=== PATIENT | female | born 1995 | race Caucasian/White ===

== ENCOUNTER 2019-01-18 18:42 | Emergency (ER) | payer OTHER ==
[2019-01-18] MEDS ORDERED: predniSONE 20 MG TABLET PO STA (19:44)
[2019-01-18] MEDS ORDERED: diphenhydrAMINE 25 MG CAPSULE PO STA (19:44)
--- NOTE | 2019-01-18 19:47 | ED Physician Documentation ---
PD HPI SKIN - Stated complaint Stated Complaint: RASH ON BODY - Chief complaint Chief Complaint: Wound - History obtained from History obtained from: Patient - History of Present Illness Timing - onset: Today (She developed an itchy rash all over but especially on the elbows and knees and face today. No clear inciting cause. No respiratory difficulty.) Review of Systems Constitutional: denies: Fever, Chills Cardiac: denies: Chest pain / pressure, Palpitations Respiratory: denies: Dyspnea, Cough GI: denies: Abdominal Pain PD PAST MEDICAL HISTORY - Past Medical History Past Medical History: No - Past Surgical History Past Surgical History: No - Present Medications Home Medications: Ambulatory Orders Medication Instructions Recorded Confirmed predniSONE [Deltasone] 60 mg PO DAILY 5 Days tablet 01/18/19 - Allergies Allergies/Adverse Reactions: Allergies Allergy/AdvReac Type Severity Reaction Status Date / Time No Known Drug Allergies Allergy Verified 01/18/19 18:49 - Social History Does the pt smoke?: No Smoking Status: Never smoker Does the pt drink ETOH?: Yes Does the pt have substance abuse?: No - Immunizations Immunizations are current?: Yes PD ED PE NORMAL - Vitals Vital signs reviewed: Yes - General General: Alert and oriented X 3, No acute distress - HEENT HEENT: PERRL, EOMI, Ears normal, Pharynx benign - Respiratory Respiratory: No respiratory distress - Abdomen Abdomen: Non tender - Derm Derm: Other (She has mild urticaria on the neck, face, elbows and knees.) - Neuro Neuro: Alert and oriented X 3, Normal speech Results - Vitals Vitals: Vital Signs - 24 hr 01/18/19 18:48 Temperature 37.0 C Heart Rate 112 H Respiratory 18 Rate Blood Pressure 149/89 H O2 Saturation 98 Oxygen O2 Source Room air Departure - Departure Disposition: Home, Self Care Clinical Impression: Urticaria Condition: Good Record reviewed to determine appropriate education?: Yes Instructions: Urticaria Prescriptions: predniSONE [Deltasone] 60 mg PO DAILY 5 Days tablet Comments: Benadryl as needed per package instructions for the itching. Do not drink or drive while taking the Benadryl. Once the steroids kick in you should need the Benadryl anymore. Forms: Activity restrictions
[2019-01-18 19:52] VITALS: BP 130/84
== END 2019-01-18 19:52 | disposition home or self-care (01) ==
LOC: ED 18:42
DX: L50.9 Urticaria, unspecified (principal)
CPT/HCPCS: 99283; A9270; J7512

== ENCOUNTER 2020-09-05 05:46 | Emergency (ER) | payer OTHER ==
[2020-09-05 05:53] VITALS: BP 148/90
--- NOTE | 2020-09-05 07:44 | ED Physician Documentation ---
History of Present Illness - Stated complaint Stated Complaint: CONGESTION - Chief complaint Chief Complaint: Resp - History obtained from History obtained from: Patient - Additonal information Additional information: Patient comes emergency department complaining of body aches, sore throat, nasal congestion, and a general sense of shortness of breath for the last couple of days. She states that she is not sure if she feels short of breath because her nose is plugged or because of an actual problem with her breathing. Patient denies any fevers or chills. No nausea or vomiting. She states her sense of taste and smell are down, but she is not sure again if this is because of nasal congestion. The patient states that Covid has been going around the [employer] base, and that her roommate was exposed to someone with Covid, but that her roommate did not have any symptoms herself. 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 Patient states she is otherwise healthy. No other complaints at this time. Review of Systems Ten Systems: 10 systems reviewed and negative Constitutional: reports: Myalgias. denies: Fever, Chills Eyes: reports: Reviewed and negative Ears: reports: Reviewed and negative Nose: reports: Rhinorrhea / runny nose, Congestion Throat: reports: Sore throat Cardiac: reports: Reviewed and negative. denies: Chest pain / pressure Respiratory: reports: Dyspnea. denies: Cough, Wheezing GI: reports: Reviewed and negative. denies: Nausea, Vomiting : reports: Reviewed and negative Skin: reports: Reviewed and negative Musculoskeletal: reports: Reviewed and negative Neurologic: reports: Reviewed and negative Psychiatric: reports: Reviewed and negative Endocrine: reports: Reviewed and negative Immunocompromised: reports: Reviewed and negative PD PAST MEDICAL HISTORY - Past Surgical History Past Surgical History: No - Allergies Allergies/Adverse Reactions: Allergies Allergy/AdvReac Type Severity Reaction Status Date / Time No Known Drug Allergies Allergy Verified 01/01/20 02:02 - Social History Does the pt smoke?: No Smoking Status: Never smoker Does the pt drink ETOH?: Yes Does the pt have substance abuse?: No - Immunizations Immunizations are current?: Yes - POLST Patient has POLST: No PD ED PE NORMAL - Vitals Vital signs reviewed: Yes - General General: Alert and oriented X 3, No acute distress - HEENT HEENT: Atraumatic, PERRL, EOMI, Moist mucous membranes, Pharynx benign - Neck Neck: Supple, no meningeal sign - Cardiac Cardiac: RRR, No murmur - Respiratory Respiratory: No respiratory distress, Clear bilaterally - Abdomen Abdomen: Soft, Non tender, Non distended - Derm Derm: Normal color, Warm and dry, No rash - Extremities Extremities: No deformity - Neuro Neuro: Alert and oriented X 3, 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 The patient is very well-appearing and other than Covid testing, no other work-up is indicated. Her oxygen saturations good, lungs are clear, and she is speaking in full sentences without difficulty. We have discussed home management of the symptoms, as well as the need to quarantine until her test comes back negative. If her test comes back positive, she has been advised that she will be called at home and will need to be quarantined until clear. Departure - Departure Disposition: 01 Home, Self Care Clinical Impression: Viral syndrome Condition: Stable Instructions: ED Viral Syndrome Forms: Activity restrictions
== END 2020-09-05 07:55 | disposition home or self-care (01) ==
LOC: ED 05:46
DX: B34.9 Viral infection, unspecified (principal); Z20.828 Contact with and (suspected) exposure to other viral communicable diseases
CPT/HCPCS: 99282; 99283

== ENCOUNTER 2021-07-16 19:28 | Emergency (ER) | payer OTHER ==
--- NOTE | 2021-07-16 21:02 | ED Physician Documentation ---
PD HPI BACK PAIN - Stated complaint Stated Complaint: LOWER BACK PX - Chief complaint Chief Complaint: Back Pain - History obtained from History obtained from: Patient - Additional information Additional information: 26yo female with LBP x 4 days. Has had before since October of this year. Has been in PTfor same. Left upper buttock pain radiates to hip and leg. Sharp/shooting. Taking meloxican sans relief. Review of Systems Constitutional: denies: Fever, Chills Eyes: reports: Reviewed and negative Ears: reports: Reviewed and negative Nose: reports: Reviewed and negative PD PAST MEDICAL HISTORY - Past Medical History Past Medical History: Yes Musculoskeletal: Chronic back pain - Past Surgical History Past Surgical History: No - Present Medications Home Medications: Ambulatory Orders Medication Instructions Recorded Confirmed Omeprazole Magnesium 20 mg PO DAILY PM 07/16/21 07/16/21 Rizatriptan Benzoate [Rizatriptan] 10 mg PO DAILY PRN 07/16/21 07/16/21 Sertraline [Zoloft] 25 mg PO DAILY 07/16/21 07/16/21 methocarbamoL [Robaxin] 500 mg PO Q6H PRN #20 tablet 07/16/21 - Allergies Allergies/Adverse Reactions: Allergies Allergy/AdvReac Type Severity Reaction Status Date / Time No Known Drug Allergies Allergy Verified 07/16/21 19:30 - Social History Does the pt smoke?: No Smoking Status: Never smoker Does the pt drink ETOH?: Yes Does the pt have substance abuse?: No - Immunizations Immunizations are current?: Yes - POLST Patient has POLST: No PD ED PE NORMAL - Vitals Vital signs reviewed: Yes - General General: Alert and oriented X 3, No acute distress - Back Back: No spinal TTP, Other (Tender to the superior gluteus musculature on the left. No midline spinal tenderness.) - Extremities Extremities: Other (The patient has equal and normal Achilles and patellar reflexes bilaterally. Normal sensation in all areas of the legs. Patient denies saddle anesthesia. Normal strength in flexion-extension at the ankles, knees, and flexion of the hips.) - Neuro Neuro: Alert and oriented X 3, Normal speech Results - Vitals Vitals: Vital Signs - 24 hr 07/16/21 19:30 Temperature 36.5 C Heart Rate 100 Respiratory 16 Rate Blood Pressure 145/87 H O2 Saturation 98 Oxygen O2 Source Room air PD MEDICAL DECISION MAKING - ED course ED course: This patient has seemingly uncomplicated musculoskeletal back pain. The patient has no "red flags." Specifically denies IV drug use, fevers, incontinence, saddle anesthesia. Spinal epidural abscess was considered, given that the patient has no fever, is not diabetic, has no spinal tenderness, does not use IV drugs, and has no bilateral neurologic symptoms, the diagnosis of spinal epidural abscess is considered exceedingly unlikely. Departure - Departure Disposition: 01 Home, Self Care Clinical Impression: Back pain Qualifiers: Back pain location: low back pain Chronicity: chronic Back pain laterality: left Sciatica presence: without sciatica Qualified Code(s): M54.5 - Low back pain; G89.29 - Other chronic pain Condition: Good Record reviewed to determine appropriate education?: Yes Instructions: ED Neck Back Pain General Prescriptions: methocarbamoL [Robaxin] 500 mg PO Q6H PRN #20 tablet PRN Reason: muscle spasm Comments: As discussed, talk with your doctor about more rigorous/scheduled physical therapy. Return for new or worsening symptoms.
[2021-07-16] MEDS ORDERED: methocarbamoL 500 MG TABLET PO STA (21:10)
[2021-07-16 21:32] VITALS: BP 106/59
== END 2021-07-16 21:32 | disposition home or self-care (01) ==
LOC: ED 19:28
DX: M54.5 Low back pain (principal)
CPT/HCPCS: 99282; 99283; A9270